=== PATIENT | male | born 1970 | race Two or more races ===

== ENCOUNTER 2020-03-12 06:00 | Day surgery (SDC) | payer OTHER | END 2020-03-12 10:10 | disposition home or self-care (01) | LOC: AMB-ENDOS 06:00 | PROVIDERS: ATTEND Surgery | DX: D12.0 Benign neoplasm of cecum (principal); D12.8 Benign neoplasm of rectum; Z12.11 Encounter for screening for malignant neoplasm of colon ==

== ENCOUNTER → 2020-04-27 08:00 | Outpatient (CLI) | payer OTHER ==
[~2020-04-27 08:00] MED LIST: COLACE100 MG PO; COZAAR50 MG PO; LIPITOR20 MG PO; PERCOCET 5-3251 EACH PO; XIGDUO XR 10 M1 EAC1 PO
== END | disposition home or self-care (01) ==
LOC: LAB 08:00 → ADM 10:30 → CIR.AMB 05-04 07:00 → EDSTATUS 05-04 10:30
PROVIDERS: ATTEND Surgery
DX: U07.1 COVID-19 (principal); K59.09 Other constipation; K60.3 Anal fistula; K62.89 Other specified diseases of anus and rectum; Z12.11 Encounter for screening for malignant neoplasm of colon

== ENCOUNTER 2020-06-15 05:40 | Day surgery (SDC) | payer OTHER ==
[~2020-06-15 05:40] MED LIST changes: -COLACE100 MG PO; -PERCOCET 5-3251 EACH PO
[2020-06-15] MEDS ORDERED: PERCOCET 5-3251 EACH PO (09:38)
[2020-06-15] MEDS ORDERED: COLACE100 MG PO (09:38)
== END 2020-06-15 14:50 | disposition home or self-care (01) ==
LOC: CIR.AMB 05:40
PROVIDERS: ATTEND Surgery
DX: K60.3 Anal fistula (principal); Z20.828 Contact with and (suspected) exposure to other viral communicable diseases

== ENCOUNTER 2021-04-22 08:09 | Day surgery (SDC) | payer OTHER ==
[~2021-04-22 08:09] MED LIST changes: +COLACE100 MG PO; +PERCOCET 5-3251 EACH PO
== END 2021-04-22 15:23 | disposition home or self-care (01) ==
LOC: AMB-ENDOS 08:09
PROVIDERS: ATTEND Surgery
DX: D12.2 Benign neoplasm of ascending colon (principal); Z20.822 Contact with and (suspected) exposure to COVID-19; Z12.11 Encounter for screening for malignant neoplasm of colon